=== PATIENT | female | born 1945 | race Caucasian/White ===

== ENCOUNTER 2017-03-25 14:48 | Emergency (ER) | payer OTHER ==
[~2017-03-25] VITALS: Ht 172.7 cm; Wt 95.3 kg
[2017-03-25 15:56] LABS: ABSOLUTE BASOPHIL COUNT 0 /CUMM (0.0-0.2); ABSOLUTE EOSINOPHIL COUNT 0.3 /CUMM (0.0-0.7); ABSOLUTE GRANULOCYTE CT 4.7 /CUMM (1.4-6.5); ABSOLUTE LYMPH COUNT 1.1 /CUMM (1.2-3.4); ABSOLUTE MONOCYTE COUNT 0.6 /CUMM (0.10-0.60); BASOPHIL % 0.4 % (0.0-2.0); EOSINOPHIL % 4.9 % (0-5); GRANULOCYTE % 69.6 % (42.2-75.2); HEMATOCRIT 39.1 % (37-47); MEAN CORPUSCULAR HGB CONC 34.2 G/DL (33.0-37.0); MEAN CORPUSCULAR VOLUME 90.7 FL (81.0-99.0); MEAN PLATELET VOLUME 6.4 FL (7.4-10.4); PLATELET COUNT 293 /CUMM (130-400); RBC DISTRIBUTION WIDTH 14.5 % (11.5-14.5); RED BLOOD CELL CT 4.31 /CUMM (4.20-5.40); WHITE BLOOD CELL COUNT 6.7 /CUMM (4.8-10.8)
--- NOTE | 2017-03-25 18:08 | ED GI/GU/ABDOMINAL COMPLAINT ---
History of Present Illness General Chief Complaint: General Adult Stated Complaint: ? LOWER GI BLEED X 7DAYS Source: patient Exam Limitations: no limitations Allergies Coded Allergies: amoxicillin (From AUGMENTIN) (RASH 03/25/17) clavulanic acid (From AUGMENTIN) (RASH 03/25/17) aiyana (RASH 03/25/17) Reconcile Medications Amlodipine Besylate 5 MG TABLET 1 TAB PO DAILY BP (Reported) Anastrozole 1 MG TABLET 1 TAB PO DAILY BREAST CANCER (Reported) Ciprofloxacin HCl (Cipro) 500 MG TABLET 1 TAB PO BID DIVERTICULITIS Losartan/Hydrochlorothiazide (Losartan-Hctz 100-25 MG Tab) 100 MG-25 MG TABLET 1 TAB PO DAILY BP (Reported) Metronidazole (Flagyl) 500 MG TABLET 1 TAB PO TID DIVERTICULITIS Naproxen Sodium (Aleve) 220 MG TABLET 1 TAB PO BID PAIN/INFLAMMATION ( Reported) Triage Note: PT STATES SHE HAS HAD BRB GA AND EXPLOSIVE DIARRHEA SINCE 03/18/17. SHE HAS HAD HEMORROIDS IN THE PAST AND COLITIS IN THE PAST. Triage Nurses Notes Reviewed? yes LMP (ages 10-50): post menopausal ? n Is pt currently ? No Onset: Gradual Duration: week(s): (1), constant, continues in ED Timing: recent history Past Sexual History: Unobtainable at this time No Modifying Factors: none Associated Symptoms: diarrhea, right red blood per rectum HPI: 71-year-old female past medical history of breast cancer, hypertension and sleep apnea present evaluation of bright red blood per rectum and diarrhea. Patient states that she first started with diarrhea about one week ago. She states that she noticed a small amount of blood mixed in with the diarrhea. The stool was not black. She is not anticoagulated. She denies any abdominal pain fever no recent travel no recent antibiotics. She does have a history of colitis and hemorrhoids. She denies any pain with bowel movements. She states that she has had several episodes of diarrhea per day since it first started. No recent surgeries or trauma. No chest pain shortness of breath fevers. She had a colonoscopy done many years ago. No weakness or dizziness no lightheadedness or syncope. (Sander Au) Vital Signs & Intake/Output Vital Signs & Intake/Output Vital Signs Date Time Temp Pulse Resp B/P B/P Pulse O2 O2 Flow FiO2 Mean Ox Delivery Rate 03/25 2050 98.2 88 18 130/72 96 Room Air 03/25 1814 98.3 57 18 132/64 96 Room Air 03/25 1456 99.1 70 20 138/79 96 Room Air (Patrice LYNN,Hiral) Past History Travel History Traveled to [place] past 21 day No Medical History Any Pertinent Medical History? see below for history Cardiovascular: hypertension Respiratory: SLEEP APNEA Cancer(s): B/L BREAST CANCER Surgical History Surgical History: non-contributory Psychosocial History What is your primary language Malian Tobacco Use: Never used ETOH Use: occasional use Illicit Drug Use: denies illicit drug use Family History Hx Contributory? No (Sander Au) Review of Systems Review of Systems Constitutional: Reports: no symptoms. EENTM: Reports: no symptoms. Respiratory: Reports: no symptoms. Cardiovascular: Reports: no symptoms. GI: Reports: see HPI, diarrhea, bloody stool, changes in stool. Genitourinary: Reports: no symptoms. Musculoskeletal: Reports: no symptoms. Skin: Reports: no symptoms. Neurological/Psychological: Reports: no symptoms. Hematologic/Endocrine: Reports: no symptoms. Immunologic/Allergic: Reports: no symptoms. All Other Systems: Reviewed and Negative (Sander Au) Physical Exam Physical Exam General Appearance: well developed/nourished, no apparent distress, alert, awake Head: atraumatic, normal appearance Eyes: Bilateral: normal appearance, PERRL, EOMI. Ears, Nose, Throat, Mouth: hearing grossly normal, moist mucous membrane Neck: normal inspection, supple, full range of motion Respiratory: normal breath sounds, chest non-tender, no respiratory distress, lungs clear Cardiovascular: regular rate/rhythm, normal peripheral pulses Peripheral Pulses: 2+ radial (R), 2+ radial (L) Gastrointestinal: normal bowel sounds, soft, non-tender, no organomegaly Rectal: normal rectal tone, heme positive stool, hemmorrhoids (external), brown stool heme positive, no gross blood Back: normal inspection, normal range of motion, no vertebral tenderness Extremities: normal range of motion Neurologic/Psych: no motor/sensory deficits, awake, alert, oriented x 3, normal gait Skin: intact, normal color, warm/dry Core Measures ACS in differential dx? No Sepsis Present: No Sepsis Focused Exam Completed? No (Sander Au) Progress Differential Diagnosis: colon cancer, diverticulitis, gastritis, hemorrhoids, ischemic bowel, inflamm bowel dis, peptic ulcer, PUD/GERD, perforated viscous, SBO Diagnostic Imaging: Viewed by Me: CT Scan. Discussed w/RAD: CT Scan. Radiology Impression: PATIENT: KAYLA BROWN PRESENT AGE: 71 PATIENT ACCOUNT NO: [id number] : 46 LOCATION: [facility] ORDERING PHYSICIAN: Sander GERMAIN SERVICE DATE: 03/25/17 EXAM TYPE: CAT - CT ABD & PELVIS W/O IV CONTRAS EXAMINATION: CT ABDOMEN AND PELVIS WITHOUT CONTRAST CLINICAL INFORMATION: Diarrhea. Bright red blood per rectum. COMPARISON: None TECHNIQUE: Multidetector volumetric imaging was performed from the superior aspect of the liver through the pubic symphysis. Sagittal and coronal reformatted images were obtained on the technologist's workstation. DLP: 498.5 mGy-cm FINDINGS: LUNG BASES: Mild dependent atelectasis. LIVER, GALLBLADDER, AND BILIARY TREE: Normal in size, attenuation, and contour. No focal lesions or ductal dilatation. The gallbladder is unremarkable with no evidence of radiopaque gallstones, gallbladder wall thickening, or obvious pericholecystic inflammatory changes. PANCREAS: Generalized fatty replacement. No focal pancreatic lesions or ductal dilatation. SPLEEN: There is a peripherally calcified cyst in the spleen measuring 2 x 1 cm. This is of doubtful clinical significance. Spleen is otherwise unremarkable. ADRENAL GLANDS: Unremarkable. KIDNEYS AND URETERS: There is a prominent water density (9 Hounsfield units) 6.1 cm cyst in the lower pole left kidney with a punctate internal calcification. This is incompletely evaluated on this study without intravenous contrast. A smaller cyst is suspected at the upper pole. No additional renal cysts are identified. Kidneys normal in size and otherwise normal in contour. No nephrolithiasis or hydronephrosis. Ureters are normal in appearance. BLADDER: Unremarkable. GASTROINTESTINAL TRACT: Stomach, small bowel, and colon are normal in caliber. Appendix is normal. There is a moderate volume of stool throughout the colon. Diverticulosis is present in the descending and sigmoid colon. There is wall thickening in the sigmoid colon with haziness of the surrounding pericolonic fat as well as multiple prominent adjacent mesenteric lymph nodes, measuring up to 9 mm in diameter. This is concerning for acute diverticulitis. No evidence of perforation or abscess. ABDOMINAL WALL: A fat-containing incisional hernia is present in the subumbilical region in the ventral midline. A punctate fat-containing umbilical hernia is also noted. There is a fat- containing left inguinal hernia. No bowel involvement. LYMPH NODES: No adenopathy, though multiple prominent lymph nodes are present in the mesentery adjacent to the inflamed sigmoid colon. VASCULAR: Unremarkable. PELVIC VISCERA: Uterus is surgically absent. Ovaries are not seen. OSSEOUS STRUCTURES: Confluent osteophytes in the thoracic spine are most compatible with diffuse hepatic skeletal hyperostosis. There is moderate to severe degenerative disc disease in the lower lumbar spine at L5-S1. Mild degenerative arthritis is present in the hips and SI joints. There is significant fatty replacement of the hip adductors, consistent with chronic tears. IMPRESSION: 1. Colonic wall thickening at the sigmoid colon with significant mesenteric fat stranding and associated prominent mesenteric lymph nodes, most compatible with acute diverticulitis. Colonoscopy/ flexible sigmoidoscopy is advised following the acute episode to exclude underlying neoplasm. 2. Fat-containing ventral incisional and left inguinal hernias. 3. A complex 6 x 1 cm left renal cyst. This is incompletely characterized on this study and warrants further evaluation with ultrasound or CT/MRI with and without contrast on a nonemergent basis. DICTATED BY: Tio Fong MD DATE/TIME DICTATED:03/25/172003 HYDROLOGY PROFESSOR:IGOR DATE/TIME TRANSCRIBED:03/25/172003 Initial ED EKG: none (James GERMAIN,Sander) Plan of Care: Orders Procedure Date/time Status Add-on Test (ER Only) 03/25 180 Active MISTAKE 03/25 1802 Active PARTIAL THROMBOPLASTIN TIME 03/25 1542 Complete PROTHROMBIN TIME 03/25 1542 Complete COMPREHENSIVE METABOLIC PANEL 03/25 1459 Complete CBC WITHOUT DIFFERENTIAL 03/25 1459 Complete Laboratory Tests 03/25/17 1542: Anion Gap 12, Estimated GFR > 60, BUN/Creatinine Ratio 25.0, Glucose 88, Calcium 10.2, Total Bilirubin 0.4, AST 26, ALT 47, Alkaline Phosphatase 106, Total Protein 7.4, Albumin 4.2, Globulin 3.2, Albumin/Globulin Ratio 1.3, PT 11.0, INR 1.05, APTT 32, CBC w Diff NO MAN DIFF REQ, RBC 4.31, MCV 90.7, MCH 31.0, RDW 14.5, MPV 6.4 L, Gran % 69.6, Lymphocytes % 16.4 L, Monocytes % 8.7, Eosinophils % 4.9, Basophils % 0.4, Absolute Granulocytes 4.7, Absolute Lymphocytes 1.1 L, Absolute Monocytes 0.6, Absolute Eosinophils 0.3, Absolute Basophils 0, PUBS MCHC 34.2 Patient seen and evaluated. Her abdomen is soft and nontender. She is afebrile. She is not orthostatic. All blood work is within normal limits including H&H. She does not have an elevated white blood cell count. CT scan shows evidence of diverticulitis. No abscess or perforation. Patient will be covered with Cipro and Flagyl. Patient is hemodynamically stable afebrile with normal labs. She is not a diabetic. A trial of outpatient antibiotics is appropriate. Spoke with gi who recommends patient come in on Tuesday of this week for a follow-up. Discussed return precautions in detail. Case discussed with Dr. Ibrahim she agrees. Patient is nontoxic-appearing and agrees the plan. (Sander Au) (Patrice LYNN,Hiral) Departure Departure Disposition: HOME OR SELF CARE Condition: Stable Clinical Impression Primary Impression: Acute diverticulitis Referrals: Gonzalo LYNN,Layo Meyer MD,Layo (PCP/Family) Additional Instructions: Rest and drink plenty of fluids. Take both antibiotics as directed for the full course. Make a follow-up appointment with provided GI doctor for this Tuesday. Monitor symptoms closely. If you have fever, severe abdominal pain, nausea, vomiting, large amounts of blood per rectum or any other concerns return to the emergency department immediately. Departure Forms: Customer Survey General Discharge Information Prescriptions: Current Visit Scripts Metronidazole (Flagyl) 1 TAB PO TID #42 TAB Ciprofloxacin HCl (Cipro) 1 TAB PO BID #28 TAB (Sander Au) PA/ANCILLARY SERVICES MANAGER THERAPY Co-Sign Statement Statement: ED Attending supervision documentation- [X] I saw and evaluated the patient. I have also reviewed all the pertinent lab results and diagnostic results. I agree with the findings and the plan of care as documented in the PA's/ANCILLARY SERVICES MANAGER THERAPY's documentation. [X] I have reviewed the ED Record and agree with the PA's/ANCILLARY SERVICES MANAGER THERAPY's documentation. [] Additions or exceptions (if any) to the PAs/ANCILLARY SERVICES MANAGER THERAPY's note and plan are summarized below: [] (Patrice LYNN,Hiral)
[2017-03-25 19:13] LABS: PTT 32 SEC (25-37)
[2017-03-25] MEDS ORDERED: LOSARTAN-HCTZ1 EAC2 PO (19:16)
[2017-03-25] MEDS ORDERED: AMLODIPINE BESYL5 M1 PO (19:16)
[2017-03-25] MEDS ORDERED: ANASTROZOLE1 M1 PO (19:16)
[2017-03-25] MEDS ORDERED: ALEVE220 M2 PO (19:18)
--- NOTE | 2017-03-25 20:18 | CT SCAN REPORT ---
EXAMINATION: CT ABDOMEN AND PELVIS WITHOUT CONTRAST CLINICAL INFORMATION: Diarrhea. Bright red blood per rectum. COMPARISON: None TECHNIQUE: Multidetector volumetric imaging was performed from the superior aspect of the liver through the pubic symphysis. Sagittal and coronal reformatted images were obtained on the technologist's workstation. DLP: 498.5 mGy-cm FINDINGS: LUNG BASES: Mild dependent atelectasis. LIVER, GALLBLADDER, AND BILIARY TREE: Normal in size, attenuation, and contour. No focal lesions or ductal dilatation. The gallbladder is unremarkable with no evidence of radiopaque gallstones, gallbladder wall thickening, or obvious pericholecystic inflammatory changes. PANCREAS: Generalized fatty replacement. No focal pancreatic lesions or ductal dilatation. SPLEEN: There is a peripherally calcified cyst in the spleen measuring 2 x 1 cm. This is of doubtful clinical significance. Spleen is otherwise unremarkable. ADRENAL GLANDS: Unremarkable. KIDNEYS AND URETERS: There is a prominent water density (9 Hounsfield units) 6.1 cm cyst in the lower pole left kidney with a punctate internal calcification. This is incompletely evaluated on this study without intravenous contrast. A smaller cyst is suspected at the upper pole. No additional renal cysts are identified. Kidneys normal in size and otherwise normal in contour. No nephrolithiasis or hydronephrosis. Ureters are normal in appearance. BLADDER: Unremarkable. GASTROINTESTINAL TRACT: Stomach, small bowel, and colon are normal in caliber. Appendix is normal. There is a moderate volume of stool throughout the colon. Diverticulosis is present in the descending and sigmoid colon. There is wall thickening in the sigmoid colon with haziness of the surrounding pericolonic fat as well as multiple prominent adjacent mesenteric lymph nodes, measuring up to 9 mm in diameter. This is concerning for acute diverticulitis. No evidence of perforation or abscess. ABDOMINAL WALL: A fat-containing incisional hernia is present in the subumbilical region in the ventral midline. A punctate fat-containing umbilical hernia is also noted. There is a fat-containing left inguinal hernia. No bowel involvement. LYMPH NODES: No adenopathy, though multiple prominent lymph nodes are present in the mesentery adjacent to the inflamed sigmoid colon. VASCULAR: Unremarkable. PELVIC VISCERA: Uterus is surgically absent. Ovaries are not seen. OSSEOUS STRUCTURES: Confluent osteophytes in the thoracic spine are most compatible with diffuse hepatic skeletal hyperostosis. There is moderate to severe degenerative disc disease in the lower lumbar spine at L5-S1. Mild degenerative arthritis is present in the hips and SI joints. There is significant fatty replacement of the hip adductors, consistent with chronic tears. IMPRESSION: 1. Colonic wall thickening at the sigmoid colon with significant mesenteric fat stranding and associated prominent mesenteric lymph nodes, most compatible with acute diverticulitis. Colonoscopy/flexible sigmoidoscopy is advised following the acute episode to exclude underlying neoplasm. 2. Fat-containing ventral incisional and left inguinal hernias. 3. A complex 6 x 1 cm left renal cyst. This is incompletely characterized on this study and warrants further evaluation with ultrasound or CT/MRI with and without contrast on a nonemergent basis.
[2017-03-25] MEDS ORDERED: CIPRO500 M1 PO (20:44)
[2017-03-25] MEDS ORDERED: FLAGYL500 MG PO (20:44)
[2017-03-25 20:50] VITALS: BP 130/72
== END 2017-03-25 21:03 ==
LOC: ERH 14:48
PROVIDERS: Emergency Medicine
DX: K57.92 Diverticulitis of intestine, part unspecified, without perforation or abscess without bleeding (principal); I10 Essential (primary) hypertension
CPT/HCPCS: 74176